=== PATIENT | female | born 2005 | race Caucasian/White ===

== ENCOUNTER 2023-07-31 19:35 | Emergency (ER) | payer SELFPAY ==
[~2023-07-31] VITALS: Ht 160 cm; Wt 59.0 kg
[2023-07-31 19:53] VITALS: BP 111/61; PULSE 85; RESP 16; TEMP 99.3; O2SAT 99
== END 2023-08-01 00:26 | disposition left against medical advice (07) ==
LOC: ER 19:35
DX: F32.9 Major depressive disorder, single episode, unspecified (principal)
CPT/HCPCS: 99283